=== PATIENT | female | born 1995 | race Caucasian/White ===

== ENCOUNTER → 2022-11-13 10:40 | Outpatient (CLI) | payer OTHER, SELFPAY ==
[2022-11-13 10:54] LABS: Miscellaneous to LabCorp NATERA KIT
[2022-11-13 12:23] LABS: Add Manual Diff / Slide Review NO; Basophils Absolute Auto 0 /uL (0-100); Basophils Percent Auto 0.4 % (0-2); Eosinophils Absolute Auto 0 /uL (0-450); Eosinophils Percent Auto 0.8 % (2-4); Hematocrit 39.4 % (36-46); Hemoglobin 13.6 g/dL (12.0-16.0); Lymphocytes Absolute Auto 1700 /uL (1100-4500); Lymphocytes Percent Auto 27.7 % (25-40); Mean Corpuscular HGB Conc 34.5 % (30-36); Mean Corpuscular Hemoglobin 32.4 PG (26-34); Mean Corpuscular Volume 93.9 fL (80-100); Monocytes Absolute Auto 300 /uL (0-900); Neutrophils Absolute Auto 4000 /uL (1500-7000); Neutrophils Percent Auto 66.1 % (50-75); Platelet Count 269 X10^3/uL (150-400); Red Cell Distribution Width 12.9 % (11.6-14.8); White Blood Cell Count 6.1 X10^3/uL (4.5-11.0)
[2022-11-14 06:01] LABS: RPR Screen Non Reactive (Non Reactive)
[2022-11-14 13:35] LABS: Varicella IgG Antibody 424 index (Immune >165)
[2022-11-14 16:13] LABS: Hepatitis B Surface Antigen NEGATIVE s/c (NEGATIVE); Rubella Antibody IgG 22.1 IU/mL (>15)
[2022-11-14 16:30] LABS: HIV 1 & 2 Ab/Ag 4th Gen Combo NEGATIVE (NEGATIVE); Hep C Virus Ab w/Reflex Quant NEGATIVE s/c (NEGATIVE)
== END ==
PROVIDERS: Specialist; PCP Student in an Organized Health Care Education/Training Program; Referring Provider Obstetrics & Gynecology; Visit Provider Obstetrics & Gynecology
DX: Z34.81 Encounter for supervision of other normal pregnancy, first trimester (principal); Z3A.12 12 weeks gestation of pregnancy
CPT/HCPCS: 36415; 80055; 86787; 86803; 86850; 86900; 86901; 87086; 87389

== ENCOUNTER → 2022-12-14 13:51 | Outpatient (CLI) | payer OTHER, SELFPAY ==
[2022-12-17 17:06] LABS: AFP Value 33.1 ng/mL (.); Gest Age on Col Date 16.9 weeks (.); Insulin Dep Diabetes No (.); OSBR Risk 1IN 10000 (.); Results Report (.); Test Results *Screen Negative* (.)
== END ==
PROVIDERS: PCP Student in an Organized Health Care Education/Training Program; Referring Provider Obstetrics & Gynecology; Visit Provider Obstetrics & Gynecology
DX: Z34.02 Encounter for supervision of normal first pregnancy, second trimester (principal); Z36.0 Encounter for antenatal screening for chromosomal anomalies; Z3A.15 15 weeks gestation of pregnancy
CPT/HCPCS: 36415; 82105

== ENCOUNTER → 2023-04-12 17:10 | Outpatient (CLI) | payer OTHER, SELFPAY | PROVIDERS: PCP Student in an Organized Health Care Education/Training Program; Visit Provider Obstetrics & Gynecology | DX: R82.998 Other abnormal findings in urine (principal) | CPT/HCPCS: 87086 ==

== ENCOUNTER 2023-05-02 12:56 | Outpatient (CLI) | payer OTHER, SELFPAY ==
[2023-05-02 13:40] LABS: Add Manual Diff / Slide Review NO; Basophils Absolute Auto 0 /uL (0-100); Basophils Percent Auto 0.5 % (0-2); Eosinophils Absolute Auto 0 /uL (0-450); Eosinophils Percent Auto 0.3 % (2-4); Hematocrit 39.1 % (36-46); Hemoglobin 13.7 g/dL (12.0-16.0); Lymphocytes Absolute Auto 1400 /uL (1100-4500); Lymphocytes Percent Auto 17.9 % (25-40); Mean Corpuscular Hemoglobin 33.6 PG (26-34); Mean Corpuscular Volume 95.9 fL (80-100); Monocytes Absolute Auto 300 /uL (0-900); Monocytes Percent Auto 4.2 % (3-14); Neutrophils Absolute Auto 6100 /uL (1500-7000); Neutrophils Percent Auto 77.1 % (50-75); Platelet Count 224 X10^3/uL (150-400); Red Blood Cell Count 4.08 X10^6/uL (4.0-5.2); Red Cell Distribution Width 13.6 % (11.6-14.8); White Blood Cell Count 7.9 X10^3/uL (4.5-11.0)
[2023-05-02 13:56] LABS: Aspartate Aminotransferase 30 IU/L (14-36); BUN Creatinine Ratio 18.2 (6-22); Blood Urea Nitrogen 10 mg/dL (7-17); Estimated Glomerular Filt Rate > 60 mL/min (>60); Uric Acid 4.8 mg/dL (2.5-6.2)
--- NOTE | 2023-05-02 14:21 | PM.OBTRLD ---
Visit Information Visit Information Date of evaluation: 05/02/23 Primary OB Provider: Hung Ruby On-call OB Provider: Ingrid Castillo Reason for Evaluation: Yes other Comments/Additional reasons for admission: Elevated blood pressure 140/80s Vital Signs Vital Signs: 27yo at 35.3w presenting with her with concern of high blood pressure. 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 Mild headache occasionally, none currently. Denies visual changes, shortness of breath, abdominal pain. Denies contractions, leaking fluid, vaginal bleeding. Good movement. [facility] Surgical History Anesthesia [place] teeth removed No pertinent past surgical history Family History Mother Breast cancer Hypothyroidism Family/Other Hypothyroidism Grandmother Hypothyroidism Grandmother Ovarian cancer Social History marital status: number of children: 0 household members: spouse lives independently: Yes caregiver/support person: No housing: house pets and animals: Yes (2 dogs) education level: college (associate's degree) occupational status: employed current occupational exposures/hazards: No special kesha needs: No travel history: recent (domestic only) seatbelt use: always water heater temp set < 120 deg: Yes working smoke detector in home: Yes fire extinguisher in home: Yes carbon monox detector in home: Yes firearms in home: No do you feel safe at home: Yes Smoking Status: Former smoker second hand exposure: No alcohol intake: former (rarely when not ) substance use type: does not use during the past year weight has: remained stable well-balanced diet: daily or most days daily servings fruits/ve-4 caffeine: No Type(s) of exercise: aerobic frequency: daily Review of Systems Review of Systems ROS: Yes All systems reviewed with the patient and are negative except as otherwise documented Exam Vital Signs (past 8 hours): 135/87, 119/70 Const General: cooperative, healthy appearing and comfortable Orientation: oriented x3 HENMT Head: normocephalic Eyes General: appearance normal, both eyes and all related structures Resp Effort & Inspection: normal respiratory effort Cardio Rate: regular rate GI Other: gravid, soft, nt Skin General: no rashes or lesions noted Neuro General: patient oriented x3 Extrem Right lower extremity: edema Left lower extremity: edema Other: +1 edema Psych Appearance: grossly normal Objective Labs 05/02/23 13:30 05/02/23 13:30 Labs: Laboratory Results - last 24 hr 05/02/23 13:30 WBC 7.9 RBC 4.08 Hgb 13.7 Hct 39.1 MCV 95.9 MCH 33.6 MCHC 35.0 RDW 13.6 Plt Count 224 Neut % (Auto) 77.1 H Lymph % (Auto) 17.9 L [place] % (Auto) 4.2 Eos % (Auto) 0.3 L Baso % (Auto) 0.5 Neut # (Auto) 6100 Lymph # (Auto) 1400 Door # (Auto) 300 Eos # (Auto) 0 Baso # (Auto) 0 BUN 10 Creatinine 0.55 Estimated GFR > 60 BUN/Creatinine Ratio 18.2 Uric Acid 4.8 AST 30 Evaluation Evaluation Baseline heart rate: 130 Variability: Moderate (11-25) monitor accelerations: Present Monitor Decelerations: Absent Contraction Frequency (minutes): 8 Uterine Contraction Intensity: Mild Category of Tracing: Reactive Status: Category l Diagnosis, Plan/Disposition Plan/Disposition Plan: 27yo at 35.3w, elevated BP third trimester without diagnosis of hypertension - NST reactive - Normotensive here in triage, preeclampsia lab evaluation negative as above. Precautions reviewed. - Discharge to home, may follow up at her scheduled OB visit next week
[2023-05-02 15:29] LABS: Creatinine Urine Random 79.2 mg/dL; Protein (Total) Urine Random 5 mg/dL (0-12); Protein Creatinine Ratio Urine 0.06 GRAM/24H
== END 2023-05-02 14:40 | disposition home or self-care (01) ==
LOC: LABOR 13:47 → OB 05-03 11:02
PROVIDERS: PCP Student in an Organized Health Care Education/Training Program; Referring Provider Obstetrics & Gynecology; Visit Provider Obstetrics & Gynecology
DX: O26.893 Other specified pregnancy related conditions, third trimester (principal); R03.0 Elevated blood-pressure reading, without diagnosis of hypertension; Z3A.35 35 weeks gestation of pregnancy
CPT/HCPCS: 59025; 82570; 84156; 84450; 84550; 85025; G0378; G0379

== ENCOUNTER → 2023-05-09 15:40 | Outpatient (CLI) | payer OTHER, SELFPAY ==
[2023-05-10 13:10] LABS: Strep Grp B PCR NEG for Grp B Strep
== END ==
PROVIDERS: PCP Student in an Organized Health Care Education/Training Program; Visit Provider Obstetrics & Gynecology
DX: Z34.01 Encounter for supervision of normal first pregnancy, first trimester (principal); Z3A.36 36 weeks gestation of pregnancy
CPT/HCPCS: 87653

== ENCOUNTER 2023-05-30 07:46 | Observation (INO) | payer OTHER, SELFPAY | END 2023-05-30 11:16 | disposition home or self-care (01) | PROVIDERS: Admitting Provider Obstetrics & Gynecology; PCP Student in an Organized Health Care Education/Training Program; Referring Provider Obstetrics & Gynecology; Visit Provider Obstetrics & Gynecology | DX: Z34.03 Encounter for supervision of normal first pregnancy, third trimester (principal); Z3A.39 39 weeks gestation of pregnancy | CPT/HCPCS: 59025; G0378; G0379 ==

== ENCOUNTER 2023-05-31 07:56 | Inpatient (IN) | payer OTHER, SELFPAY ==
[2023-05-31 09:29] VITALS: BP 121/87
[2023-05-31 09:44] LABS: Add Manual Diff / Slide Review NO; Basophils Absolute Auto 0 /uL (0-100); Basophils Percent Auto 0.6 % (0-2); Eosinophils Absolute Auto 0 /uL (0-450); Eosinophils Percent Auto 0.4 % (2-4); Hematocrit 37.2 % (36-46); Lymphocytes Absolute Auto 1400 /uL (1100-4500); Lymphocytes Percent Auto 17.9 % (25-40); Mean Corpuscular Hemoglobin 33.7 PG (26-34); Mean Corpuscular Volume 96.2 fL (80-100); Monocytes Absolute Auto 300 /uL (0-900); Neutrophils Absolute Auto 5900 /uL (1500-7000); Neutrophils Percent Auto 77.1 % (50-75); Platelet Count 206 X10^3/uL (150-400); Red Blood Cell Count 3.87 X10^6/uL (4.0-5.2); Red Cell Distribution Width 13.3 % (11.6-14.8); White Blood Cell Count 7.6 X10^3/uL (4.5-11.0)
[2023-05-31] MEDS: LACTATED RINGERS 1,000 ML 100 ML IV ×2 (10:30→14:47)
[2023-05-31] MEDS: FENT 2MCG/ML BUPIV 0.125% EPI 200 MCG/100 ML PLAST..BAG 8 MCG EPIDURAL ×2 (11:30→18:45)
--- NOTE | 2023-05-31 11:57 | PM.AN.REGBLK ---
[facility] <Bianca Steen CRNA - Last Filed: 05/31/23 12:06> Pre-procedure Procedure: Continuous Lumbar Epidural for L&D Attending OB provider: Hung Ruby PMH/ROS narrative: Full-term requesting continuous labor epidural. PSH/Anesthesia history narrative: See pre-anesthesia evaluation form for further details. ASA Class: II Labs: Hct 37.2 % (36-46) 05/31/23 09:15 Plt Count 206 X10^3/uL (150-400) 05/31/23 09:15 Medications: Current Medications Generic Name Dose Route Start Last Admin Trade Name Freq PRN Reason Stop Dose Admin Acetaminophen 650 mg 05/31/23 11:50 Acetaminophen 325 Mg Tablet PO Q4HR PRN headache/mild pain Calcium Carbonate 1,000 mg 05/31/23 09:21 Calcium Carbonate 500 Mg Tab PO Q4HR PRN Dyspepsia Carboprost Tromethamine 250 mcg 05/31/23 09:21 Carboprost 250 Mcg/Ml Ampul IM Q90M PRN Bleeding Ephedrine Sulfate 10 mg 05/31/23 11:54 Ephedrine 50 Mg/Ml Vial IV Q5M PRN Blood pressure decrease more than 20% of baseline. Fentanyl 50 mcg 05/31/23 09:21 Fentanyl 100 Mcg/2 Ml Inj IV Q1H PRN Pain, Moderate (4-6) Hydroxyzine HCl 25 mg 05/31/23 11:50 Hydroxyzine 50 Mg/Ml Inj IM Q4HR PRN spasm or agitation Lactated Ringer's 1,000 mls @ 100 mls/hr 05/31/23 09:30 Lactated Ringers IV CONT KELLY Oxytocin/Lactated Ringer's 30 unit in 500 mls @ 200 mls/hr 05/31/23 09:21 Oxytocin Premix IV CONT PRN Bleeding Protocol Tranexamic Acid 1,000 mg/ 100 mls @ 200 mls/hr 05/31/23 09:21 Sodium Chloride IV NOW PRN Bleeding Lactated Ringer's 1,000 mls @ 100 mls/hr 05/31/23 12:00 Lactated Ringers IV CONT KELLY FENT 2MCG/ML BUPIV 0.125% EPI 200 mcg in 100 mls @ 8 mls/hr 05/31/23 12:00 Fentanyl/Bupiv/Ns 2mcg/Ml - 0.125% EPIDURAL CONT KELLY Lidocaine HCl 20 ml 05/31/23 09:21 Lidocaine 1% 20 Ml INJ INTRA-OP PRN Post Delivery Methylergonovine Maleate 0.2 mg 05/31/23 09:21 Methylergonovine 0.2 Mg Tablet PO Q6HR PRN Heavy Bleeding Methylergonovine Maleate 0.2 mg 05/31/23 09:21 Methylergonovine 0.2 Mg/Ml Vial IM NOW PRN Bleeding Misoprostol 800 mcg 05/31/23 09:21 Misoprostol 200 Mcg Tablet AL NOW PRN Bleeding Misoprostol 400 mcg 05/31/23 09:21 Misoprostol 200 Mcg Tablet SL NOW PRN Bleeding Nalbuphine HCl 2.5 mg 05/31/23 11:54 Nalbuphine 20 Mg/Ml Ampul IV Q10M PRN Pruritis Naloxone HCl 0.2 mg 05/31/23 09:21 Naloxone 0.4 Mg/Ml Vial IV Q2MIN PRN Opiate Reversal Naloxone HCl 0.4 mg 05/31/23 11:50 Naloxone 0.4 Mg/Ml Vial IV Q2MIN PRN Opiate Reversal Ondansetron HCl 4 mg 05/31/23 09:21 Ondansetron 4 Mg/2 Ml Inj IV Q4HR PRN Nausea And Vomiting Ondansetron HCl 4 mg 05/31/23 11:50 Ondansetron 4 Mg/2 Ml Inj IV Q6HR PRN Nausea And Vomiting Oxytocin 10 unit 05/31/23 09:21 Oxytocin 10 Unit/Ml Vial IM NOW PRN Bleeding Allergies: Allergies Allergy/AdvReac Type Severity Reaction Status Date / Time No Known Drug Allergies Allergy Unverified 05/22/23 08:40 Procedure Insertion date: 05/31/23 Insertion time: 11:17 Prep/Local: 1% lidocaine (chlorhexadine prep to skin) Interspace: L2/L3 Patient position: sitting Needle: 18 gauge Olvin (with 27g 5inch Pencan needle- + CSF return with spinal) Loss of resistance with: saline NIURKA at (cm): 5 Catheter placed at SKIN (cm): 13 Catheter in SPACE (cm): 8 Initial Medications TEST DOSE time: 11:20 TEST DOSE: 1.5% lidocaine with epinephrine 1:200k (mL): 3 Infusion INFUSION: 0.125% bupivacaine (0.1%) and with fentanyl 2 mcg/mL Initial rate (mL/hr): 8 Subsequent interventions: ephedrine 40mg IV given post-procedure for hypotension Post-procedure Anesthesia time START: 11:03 <Loretta Rivas DO - Last Filed: 06/01/23 10:08> Post-procedure Anesthesia time END: 21:51 Post-procedure Anesthesia Assessment: Yes CV function: HR/BP stable, Yes Resp function: RR/sat/airway adequate, Yes Post-op hydration adequate, Yes Pain control adequate, Yes Nausea & vomiting absent, Yes Temperature > 36 C and Yes Mental status appropriate
--- NOTE | 2023-05-31 12:17 | P.HPOB_ITS ---
OB HPI Date/Time Date of admission: 05/31/23 Date Patient Seen: 05/31/23 Time Patient Seen: 11:30 History of Present Condition Chief complaint: rupture of membranes : 1 Estimated Date of Delivery: 06/03/23 Estimated Gestational Age (weeks): 39+4wk Narrative: Georgette Peralta is a 27 year old female Comments: admitted in early labor due to SROM at midnight last night, clear fluid. Indications Other reason(s) for admission: SROM History of Present care: good care Dating criteria: based on 1st trimester US only Obstetrical complications: none Medical complications: none Narrative: G1 Reports Hx slightly low WBCs with no apparent cause; common in her family 05/09/2023: S<D, growth US ordered--> scheduled for 05/20/23 (Normal growth) Gene Preadmission Labs Blood type: O (+) positive -: Antibody screen: negative, Cystic fibrosis screen: unknown, GBS status: negative, HBsAG: negative, HIV: negative, HSV 1: unknown, HSV 2: unknown and RPR/VDLR: negative -: Rubella: immune and Varicella: immune HCT: 37.2 HCAB: negative PAP: Normal Sequential screen: AFP neg Cell-free DNA: low risk 1 hr GTT: 120 Evaluation Evaluation Baseline heart rate: 135 Variability: Moderate (11-25) monitor accelerations: Present Monitor Decelerations: Absent Status: Category l Dilation: 3-4 cm [facility] Surgical History Anesthesia [place] teeth removed No pertinent past surgical history Family History Mother Breast cancer Hypothyroidism Family/Other Hypothyroidism Grandmother Hypothyroidism Grandmother Ovarian cancer Social History marital status: number of children: 0 household members: spouse lives independently: Yes caregiver/support person: No housing: house pets and animals: Yes (2 dogs) education level: college (associate's degree) occupational status: employed current occupational exposures/hazards: No special kesha needs: No travel history: recent (domestic only) seatbelt use: always water heater temp set < 120 deg: Yes working smoke detector in home: Yes fire extinguisher in home: Yes carbon monox detector in home: Yes firearms in home: No do you feel safe at home: Yes Smoking Status: Never smoker second hand exposure: No alcohol intake: former (rarely when not ) substance use type: does not use during the past year weight has: remained stable well-balanced diet: daily or most days daily servings fruits/ve-4 caffeine: No Type(s) of exercise: aerobic frequency: daily Meds Home Medications and Allergies Home Medications Medication Instructions Recorded Confirmed Type prenat.vits,fly,[id number] 1 tab PO DAILY 10/12/22 05/22/23 History Allergies Allergy/AdvReac Type Severity Reaction Status Date / Time No Known Drug Allergies Allergy Unverified 05/22/23 08:40 Review of Systems Review of Systems ROS: Yes All systems reviewed with the patient and are negative except as otherwise documented OB Exam Vital signs Blood Pressure: 121/87 Pulse Rate: 98 Temperature: 36.4 F HENMT Head: normal to inspection Resp Effort & Inspection: normal respiratory effort and able to speak in complete sentences Extremities Lower extremity: Yes normal to inspection GI Other: gravid, nontender, nondistended Objective Labs 05/31/23 09:15 Labs: Laboratory Results - last 24 hr 05/31/23 09:15 WBC 7.6 RBC 3.87 L Hgb 13.0 Hct 37.2 MCV 96.2 MCH 33.7 MCHC 35.0 RDW 13.3 Plt Count 206 Neut % (Auto) 77.1 H Lymph % (Auto) 17.9 L [place] % (Auto) 4.0 Eos % (Auto) 0.4 L Baso % (Auto) 0.6 Neut # (Auto) 5900 Lymph # (Auto) 1400 [place] # (Auto) 300 Eos # (Auto) 0 Baso # (Auto) 0 Assessment and Plan Assessment and Plan Assessment and Plan narrative: 27yo at 39+4wks admitted in early labor with SROM at midnight 05/31/23. -CBC, T&S on admission -continuous EFM -epidural PRN -GBS neg, ppx not indicated -PPH risk low -VTE risk low, SCDs with epidural -anticipate L&D Counseling: Common procedures and interventions related to the management of were explained to the patient, including assistance at vaginal delivery with episiotomy, vacuum, or forceps, use of medications to stop premature labor or induce labor, and assessment including auscultation (listening to the heart), use of electronic monitoring (external and / or internal), and use of scalp electrode and/or intrauterine pressure catheter.? It was also explained that approximately 20-30% of mothers have a need for delivery during their labor course. It was explained to the patient that , labor and delivery are ordinarily normal physiological events and can be expected to provide a healthy outcome for mother and baby in the majority of cases. However, there are complications that may arise during , labor, and delivery, such as: hemorrhage requiring administration of blood and/or blood products, surgical intervention, possibly even hysterectomy for life-saving purposes; possibility of infection requiring antibiotics, prolonged hospital stay, and rarely surgical intervention; possibility of blood clots;? possibility of retained products of conception requiring surgical intervention;? possibility of serious tears or injury to the vagina, cervix, perineum, or rectum;? possibility of injury to abdominal structures if delivery is required;? and rarely maternal or may occur. Time Spent with Patient Total time spent with greater than 50% in coordination of care (as documented) at patient's floor/unit and/or counseling patient:: 15-24 minutes
[2023-05-31 12:28] VITALS: BP 121/87; PULSE 98; TEMP 2.4; TEMP 36.4
[2023-05-31] MEDS: OXYTOCIN PREMIX 30 UNIT/500 ML PLAST..BAG IV (13:09)
--- NOTE | 2023-05-31 16:18 | PM.OBPNLAB ---
Date/Time Date Patient Seen: 05/31/23 Time Patient Seen: 16:18 Pain Control Pain control: tolerating well and epidural Pelvic Exam Dilation (cm): 8 Effacement (%): 90 station: -1 Amniotic membrane status: Ruptured Contractions Contractions on admission: irregular Pitocin rate (mU/min): 4 Contraction pattern: Irregular Status status: Category l Heart Rate Baseline: 140 Monitor Accelerations: Present Monitor Decelerations: Absent Monitor Variability: Moderate Assessment and Plan Assessment: active labor Plan: continuous present management
--- NOTE | 2023-05-31 19:37 | PM.OBPNLAB ---
Date/Time Date Patient Seen: 05/31/23 Time Patient Seen: 18:00 Pain Control Pain control: epidural Comments: This CNM assumed care from Dr. Lawrence at 1800 due to being content strategist. Georgette is comfortable with epidural, ready to start pushing. Well supported by Gene, and excited to meet her baby girl. Covered with her blanket that was her brother's - his name was Jeramie and he of a fentanyl overdose 2 years ago. Hoping to find a name for the baby that is honoring him. Pelvic Exam Dilation (cm): 10 Effacement (%): 100 station: +1 Amniotic membrane status: Ruptured Comments: Clear fluid. VS: 105/56 HR: 117-139 bpm Temp:98.1 RR: 16/min Contractions Contraction frequency (min): 4 Contraction pattern: Irregular Contraction intensity: Strong/Firm Status status: Category l Heart Rate Baseline: 155 Monitor Accelerations: Present Monitor Decelerations: Absent Monitor Variability: Moderate Assessment and Plan Comments: in 2nd stage labor Rh pos GBS neg PROM x 18 hours Begin pushing. Anticipate .
--- NOTE | 2023-05-31 22:16 | PM.OBPRVD ---
Events: Prolonged Rupture Membrane (22 hours) Labor & Delivery Delivery date: 05/31/23 Intrapartal Events: Prolonged 2nd Stage > 2.5 hours Delivery augmentation: pitocin Delivery monitor: external FHT Route of delivery: L&D Laceration Description: Perineal - 1st Degree Quantitative Blood Loss: 318 Anesthesia Type: Epidural Narrative: Labor progressed well. Georgette was found to be complete shortly before 1800 and pushed effectively for a long 2nd stage. FHR was Cat 1 and 2 throughout 2nd stage. NSVB of baby at 2149, with restitution to OSCAR and then shoulders delivered easily with maternal effort; R nuchal arm noted across chest and under L chin but no nuchal cord. Baby was placed on maternal abdomen when Georgette was ready to receive him/her. Apgars 9/9. They remained skin to skin while cord was cut and placenta was delivered. Placenta delivered spontaneously with maternal efforts and appeared to be intact. 3 vessel cord clamped and cut by Gene (FOB) at 10 minutes of life after cord pulsing had stopped. Cord blood collected for blood typing. Perineum inspected and found to have perineal first degree laceration, hemostatic and not requiring repair. At delivery, vaginal laceration was bleeding; after placental delivery, bleeding absent. Blood loss measured and estimated loss is 318 mL. Mom and baby left stable and is being initiated. Georgette & Gene are thrilled to meet their baby girl. Sabrina HOFFMANN, CNM, IBCLC Baby 1: gender: Female Presentation: vertex (nuchal arm) Position: Right Occiput Anterior Placenta delivery description: Spontaneous Cord Vessel Description: 3 Vessels score (1 min): 9 score (5 min): 9 weight: 3140 kg Narrative: Compound nuchal arm Plan for aftercare: Routine care
--- NOTE | 2023-05-31 22:22 | PM.OBDS.1 ---
Discharge Providers Provider Date of admission: 05/31/23 07:56 Discharge Date: 06/01/23 Primary care physician: Solo Craven Consults: 05/31/23 09:22 Consult to Anesthesiology Urgent Comment: Consulting Provider: Loretta Rivas Reason for consultation: Epidural Discharge provider: Sabrina Carlos CNM, ARNP Summary Hospital Course Date Patient Seen: 06/01/23 Time Patient Seen: 16:49 Diagnoses: O70.0 Hospital Course: Georgette was admitted for PROM, began keith spontaneously, got epidural and then pitocin augmentation with max pitocin up to 7 mu/min. Pushed for almost 4 hours to deliver baby girl in vertex presentation with compound hand. 1st degree laceration unrepaired due to midline and hemostatic. Normal course. . QBL 318 mL. Peripartum Data Delivery Method: Natural Vaginal Laceration Description: Perineal - 1st Degree Procedures: 1: Gender: Female Disposition of : home Status at Discharge Cognitive/behavioral status at discharge: oriented and calm Functional status at discharge: independent ambulation Overall status at discharge: patient is progressing back to baseline Time Spent with Patient Time attestation: Total time spent providing and/or coordinating discharge services: Time spent: Less than 30 minutes Specific discharge activities: discharge teaching Objective Labs 05/31/23 09:15 Labs: Laboratory Results - last 24 hr 05/31/23 09:15 WBC 7.6 RBC 3.87 L Hgb 13.0 Hct 37.2 MCV 96.2 MCH 33.7 MCHC 35.0 RDW 13.3 Plt Count 206 Neut % (Auto) 77.1 H Lymph % (Auto) 17.9 L [place] % (Auto) 4.0 Eos % (Auto) 0.4 L Baso % (Auto) 0.6 Neut # (Auto) 5900 Lymph # (Auto) 1400 [place] # (Auto) 300 Eos # (Auto) 0 Baso # (Auto) 0 Blood Type O Positive Antibody Screen Negative Exam Vital Signs (past 8 hours): BP 109/68 HR 85 T 98.2 F temporal Other: Fundus firm at U-1, midline. Lochia moderate rubra Perineum intact with minimal edema Discharge Plan Discharge Plan Patient Disposition: Home Discharge orders & Medications Prescriptions: Continued prenat.vits,fly,[id number] Tablet 1 tab PO DAILY Follow up/Referrals: Solo Craven [Primary Care Provider] - Sabrina Carlos CNM, GROUT PUMP OPERATOR [Advanced Application Project Leader] - Hung Ruby MD [Physician] - 6 Weeks Diet/Activity/Treatments Diet: Diet as Tolerated and Regular Diet comment: Increase fiber and hydration to encourage soft stools and promote healing Visit Report/Discharge Packet Stand Alone Forms: Discharge: Care, Patient Portal/API Discharge Data Primary Care Provider: Solo Craven
[2023-05-31] MEDS: DERMOPLAST SPRAY 20% 60 ML 1 SPRAY TOP (22:47)
[2023-05-31] MEDS: KETOROLAC 30 MG/ML VIAL IV (22:47)
[2023-05-31] MEDS: ACETAMINOPHEN 325 MG TABLET 650 MG PO (22:47)
[2023-06-01] MEDS: IBUPROFEN 600 MG TABLET PO ×2 (06:18→13:26)
[2023-06-01] MEDS: ACETAMINOPHEN 325 MG TABLET 650 MG PO ×2 (06:18→13:26)
[2023-06-01 17:21] VITALS: BP 110/69; PULSE 85; RESP 16; TEMP 36.8
== END 2023-06-01 17:25 | disposition home or self-care (01) | DRG 807 ==
PROVIDERS: Admitting Provider Obstetrics & Gynecology; PCP Student in an Organized Health Care Education/Training Program; Referring Provider Obstetrics & Gynecology; Visit Provider Obstetrics & Gynecology
DX: O42.02 Full-term premature rupture of membranes, onset of labor within 24 hours of rupture (principal); Z37.0 Single live birth; Z3A.39 39 weeks gestation of pregnancy; Z34.03 Encounter for supervision of normal first pregnancy, third trimester
CPT/HCPCS: 36415; 59025; 59050; 84112; 85025; 86850; 86900; 86901; G0378; G0379; J1885; J2590

== ENCOUNTER 2024-11-20 21:58 | Emergency (ER) | payer OTHER, SELFPAY ==
[2024-11-20 22:05] VITALS: BP 135/88; PULSE 90; RESP 16; TEMP 36.5; O2SAT 99; BMI 21.1
--- NOTE | 2024-11-20 22:12 | DI.US.S_ITS ---
PROCEDURE: US OB <= 14 WEEKS FETUS INDICATIONS: 6 weeks and bleeding OUTSIDE/PRIOR DATING DATA: Last menstrual period (LMP): 09/23/2024? TECHNIQUE: Real-time scanning was performed of the fetus and maternal pelvic organs, with image documentation. Endovaginal scanning was also performed to better visualize the fetus and maternal ovaries. COMPARISON: None. FINDINGS: Embryo: Intrauterine gestational sac. MGSD 0.2 cm, gestational age 4 weeks 6 days. No pole is seen at this time. Heart rate: Not seen. Maternal organs: Ovaries are within normal limits. Left corpus luteum measuring 2.1 cm. IMPRESSION: Suspected intrauterine . Estimated gestational age 4 weeks 6 days. Recommend short-term follow-up pelvic ultrasound. We strive to produce accurate, complete, and clear reports of imaging services. To assist us in improving patient care, this report was composed using standard report templates and voice recognition software. Therefore, it may contain abnormal punctuation, insertions and/or omissions. Occasional wrong-word or sound-alike substitutions may occur. Though we review the report and make efforts to correct it, we do recommend that the report be read carefully in proper context to recognize any text inaccuracies. Dictated by: Cristopher Longoria M.D. on 11/20/2024 at 23:52 Approved by: Cristopher Longoria M.D. on 11/20/2024 at 23:56
--- NOTE | 2024-11-21 01:29 | ED_ITS ---
HPI - General Chief complaint: OB/Uterine Contractions Stated complaint: sent by for ultasound Time Seen by Provider: 11/21/24 01:28 Source: patient and old records reviewed Mode of arrival: Ambulatory Limitations: no limitations History of Present Illness HPI Narrative: 28-year-old female 0 presents with complaint of pelvic pressure and vaginal bleeding. Patient states last period was September 20. She states had 2 home tests that were positive as well as a test at the hospital. Patient states she has not really had pain but has a little bit of pelvic pressure. She was had some mild cramping. Denies fevers. No chest pain or shortness of breath, no head has passing out. Denies any other GI or urinary symptoms. States she was had some clots and thought she had some sort of tissue in the vaginal area. Patient states she was going through about 3 pads daily starting yesterday. By report sounds like she had a pelvic exam and was told that she did not have any present. Patient states she was had 1 prior . States no daily medications. No known drug allergies. No tobacco, no regular alcohol or recreational drugs. Lives in [place] does have primary care provider there. Related Data Home Medications Medication Instructions Recorded Confirmed prenat.vits,fly,ton-[id number] 1 tab PO DAILY 10/12/22 05/22/23 Previous Rx's Medication Instructions Recorded norethindrone (contraceptive) 0.35 0.35 mg PO DAILY contraception 06/01/24 mg tablet while . #84 tabs Allergies Allergy/AdvReac Type Severity Reaction Status Date / Time No Known Drug Allergies Allergy Unverified 05/22/23 08:40 Review of Systems Review of Systems ROS Unobtainable: All systems reviewed & are unremarkable except as noted in HPI and below Exam Narrative Exam Narrative: GENERAL: Alert and oriented x three, well-appearing female in mild distress HEENT: Head normocephalic, atraumatic, EOMI, pupils reactive, face symmetric, moist mucous membranes NECK: Supple, full range of motion CARDIOVASCULAR: Regular rate and rhythm without murmurs, rubs or gallops. RESPIRATORY: Breath sounds equal bilaterally, no wheezes rales or rhonchi. ABDOMEN: Soft, nontender. Normoactive bowel sounds all 4 quadrants. No guarding or rebound, rigidity, no mass : No CVA tenderness EXTREMITIES: Normal range of motion, no clubbing or edema. Neurovascularly intact NEUROLOGICAL: Cranial nerves II through XII grossly intact. Moving all extremities SKIN: Warm, dry, no petechiae, no rashes or lesions. Initial Vital Signs Initial Vital Signs: Vital Signs Temperature 97.7 F 11/20/24 22:05 Pulse Rate 90 11/20/24 22:05 Respiratory Rate 16 11/20/24 22:05 Blood Pressure 135/88 11/20/24 22:05 Pulse Oximetry 99 11/20/24 22:05 Oxygen Delivery Method Room Air 11/20/24 22:05 Course Orders Ordered: ED Orders 11/20/24 22:12 US OB <= 14 weeks fetus Stat Vital Signs Vital signs: Vital Signs - 8 hr 11/20/24 22:05 11/21/24 02:03 Temperature 97.7 F Pulse Rate 90 71 Respiratory Rate 16 16 Blood Pressure 135/88 97/69 Pulse Oximetry 99 98 Oxygen Delivery Method Room Air Room Air MDM - OB/Uterine Contractions MDM Narrative Medical decision making narrative: Blood type O positive from 05/31/[address] [facility] OB ultrasound less than 14 weeks report is in PACs but did not crossover to EMR. Report shows intrauterine gestational sac. Mg ASD 0.2 cm, gestational age 4 weeks 6 days no pole seen at this time. Heart rate not seen. Ovaries are within normal limits. Left corpus luteum measuring 2.1 cm. Impression suspected intrauterine estimated gestational age 4 weeks and 6 days. Recommend short term follow up pelvic ultrasound. Patient had labs [facility] [place] which showed an hCG quantitative of 16.3, CBC showed a white count of 4.7 hemoglobin of 13.9 hematocrit of 41, patie nt had platelets of 269 CMP showed potassium of 3.4 sodium 139 chloride of 102 CO2 of 28 anion gap 9 glucose of 136 with a BUN 14 creatinine 0.99 bilirubin was 0.3 with a alk-phos of 64 AST ALT are 19 and 15. Patient does have an ABO Rh pending with the antibiotic screening process at their facility we called they are send out labs. Patient did present with records from [facility] has had some vaginal bleeding and cramping concerned for potential miscarriage versus ectopic. Patient's heart rate was 110 normotensive afebrile with O2 100% at there facility. Patient has been appears to be potential intrauterine but hCG was 16 recommend follow up in the next 48 hours for repeat hCG and follow up with pelvic ultrasound. Discussed with the patient can return to the emergency department if necessary but we will give referral to follow up with the die mounter here locally. Discussed suspect she was likely having a miscarriage but we will need to have repeat hCG and pelvic ultrasound to confirm this to see if it is increasing or decreasing. Discharge Plan Departure Patient Disposition: Home Clinical Impression: Vaginal bleeding in Instructions: DI for Vaginal Bleeding During Activity Restrictions/Additional Instructions: Your imaging today shows what appears to be suspected intrauterine age 4 weeks and 6 days but your hCG level is very low. Follow up for recheck hCG level in 24-48 hours as well as follow up for repeat pelvic ultrasound. Included below as contact information for die mounter you can do this locally. Talk with your providers on [facility] they maybe able to arrange this over there. You can take acetaminophen up to a 1000 mg every 6 hours as needed for pain. Please return if you have fevers, rapidly worsening abdominal back or flank pain, persistent vomiting, lightheadedness or passing out, new chest pain or shortness of breath, bleeding through more than 1 pad an hour or other new or concerning changes. Prescriptions: No Action norethindrone (contraceptive) 0.35 mg tablet 0.35 mg PO DAILY Qty: 84 2RF prenat.vits,fly,[id number]-caol-[id number] Tablet 1 tab PO DAILY Referrals: Solo Craven [Primary Care Provider] - Stand Alone Forms: Patient Portal/API/Survey
[2024-11-21 02:03] VITALS: BP 97/69; PULSE 71; RESP 16; O2SAT 98
== END 2024-11-21 02:06 | disposition home or self-care (01) ==
PROVIDERS: Emergency Provider Emergency Medicine; PCP Student in an Organized Health Care Education/Training Program
DX: O20.9 Hemorrhage in early pregnancy, unspecified (principal); Z3A.01 Less than 8 weeks gestation of pregnancy
CPT/HCPCS: 76801; 76817; 99281; 99283